=== PATIENT | female | born 1985 | race Caucasian/White ===

== ENCOUNTER → 2024-08-10 10:27 | Outpatient (CLI) | payer OTHER, SELFPAY ==
--- NOTE | 2024-08-10 10:30 | DI.MG.S_ITS ---
UNILATERAL RIGHT DIGITAL DIAGNOSTIC MAMMOGRAM 3D/2D WITH ADDITIONAL VIEWS: 08/10/2024 CLINICAL: Additional evaluation requested from prior study. Comparison is made to exam dated: 04/24/2024 mammogram - [facility]. The breasts are heterogeneously dense, which may obscure small masses (category c / 51-75% glandular tissue). There are grouped coarse heterogeneous punctate calcifications in the right breast at 12 o'clock posterior depth. These are seen in additional views. No other significant masses or calcifications are seen in the breast. IMPRESSION: SUSPICIOUS The grouped coarse heterogeneous punctate calcifications in the right breast are at a low suspicion for malignancy. A stereotactic biopsy is recommended. Findings and recommendations were discussed with the patient during today's examination. Based on the Tyrer Cuzick model (a risk assessment model) the patient's lifetime risk is 13.9% and her 10 year risk is 1.9%. According to the ACR, ACS, and NCCN guidelines, an annual breast MRI exam along with mammogram is recommended if the patient's lifetime risk is 20% or greater. This exam was interpreted at Station ID: [id number]. NOTE: For mammograms, a report in lay terms will be sent to the patient. Approximately 15% of breast malignancies will not be visualized mammographically. In the management of a palpable breast mass, a negative mammogram must not discourage biopsy of a clinically suspicious lesion. Electronically Signed By: Ji Campbell M.D. aty/:08/10/2024 11:30:54 letter sent: Biopsy Required ACR BI-RADS Category 4A: Suspicious
== END ==
PROVIDERS: PCP Nurse Practitioner Family; Referring Provider Nurse Practitioner Family; Visit Provider Nurse Practitioner Family
DX: R92.1 Mammographic calcification found on diagnostic imaging of breast (principal); R92.333 Mammographic heterogeneous density, bilateral breasts
CPT/HCPCS: 77065; G0279

== ENCOUNTER → 2024-09-14 11:40 | Outpatient (CLI) | payer OTHER, SELFPAY ==
--- NOTE | 2024-09-14 | DI.MRI.S_ITS ---
PROCEDURE: MR LUMBAR SPINE WO CON INDICATIONS: Low back pain, unspecified TECHNIQUE: Noncontrast sagittal T1 spin echo and T2 fast echo, sagittal STIR, and T2 fast spin echo through the lumbar spine. In cases with scoliosis, additional coronal T2 fast spin echo may be performed. COMPARISON: None. FINDINGS: Image quality: Adequate. Some motion artifact on axial imaging sequences. Alignment and Curvature: There is normal alignment except for grade 1 anterolisthesis of L5 on S1 by approximately 4 millimeters. Bone Marrow: Marrow signal is normal except for the L3 vertebral body where there is geographic T1 hypointensity and T2 hyperintensity within the right jose maria body superior endplate extending back into the right pedicle. Differential diagnosis includes superior endplate fracture at L3 however no clear discernible fracture line is noted. Spinal Cord: Conus medullaris terminates at the L1 level. Visualized cord demonstrates normal signal and size. Paraspinous Soft Tissues: No paravertebral masses. T12-L1: Normal appearance. L1-L2: Normal appearance. L2-L3: Normal appearance. L3-L4: Normal appearance. L4-L5: Mild bilateral facet degenerative changes with some ligamentum flavum hypertrophy without significant central spinal or neural foraminal stenosis. L5-S1: Bilateral moderate facet degenerative change. Anterolisthesis of L5 on S1 grade 1. Mild bilateral neural foraminal stenosis. No significant central spinal stenosis. IMPRESSION: 1. Geographic area of T1 hypointensity and T2 hyperintensity within the right jose maria body of L3 superiorly extending back to the right pedicle. Differential diagnosis includes superior endplate fracture at L3 however no obvious cortical fracture line is noted and there is no evidence of any vertebral body compression. Correlate with history of trauma and targeted physical exam findings. If no history of trauma in this location repeat lumbar spine MRI with intravenous contrast may be of benefit to evaluate for underlying lesion such as neoplasm or atypical hemangioma. 2. Grade 1 anterolisthesis of L5 on S1 with bilateral facet degenerative changes at this level as above. Dictated by: Adria Crawford M.D. on 09/14/2024 at 12:52 Approved by: Adria Crawford M.D. on 09/14/2024 at 13:10
== END ==
PROVIDERS: PCP Nurse Practitioner Family; Referring Provider Nurse Practitioner Family; Visit Provider Nurse Practitioner Family
DX: M54.10 Radiculopathy, site unspecified (principal); M43.17 Spondylolisthesis, lumbosacral region; M47.816 Spondylosis without myelopathy or radiculopathy, lumbar region; M47.817 Spondylosis without myelopathy or radiculopathy, lumbosacral region; M54.50 Low back pain, unspecified
CPT/HCPCS: 72148

== ENCOUNTER 2024-09-16 18:44 | Emergency (ER) | payer OTHER, SELFPAY ==
[2024-09-16] VITALS (8 sets, daily range): BP systolic 99–122; BP diastolic 56–77; PULSE 86–100; RESP 16–20; TEMP 36.8; O2SAT 98–100; BMI 29.2
[2024-09-16 19:23] LABS: Add Manual Diff / Slide Review NO; Basophils Absolute Auto 100 /uL (0-100); Basophils Percent Auto 0.8 % (0-2); Eosinophils Absolute Auto 400 /uL (0-450); Eosinophils Percent Auto 3.1 % (2-4); Hematocrit 37.5 % (36-46); Hemoglobin 12.4 g/dL (12.0-16.0); Lymphocytes Absolute Auto 2800 /uL (1100-4500); Lymphocytes Percent Auto 20.3 % (25-40); Mean Corpuscular Hemoglobin 28.5 PG (26-34); Mean Corpuscular Volume 86.4 fL (80-100); Monocytes Absolute Auto 1000 /uL (0-900); Monocytes Percent Auto 7.5 % (3-14); Neutrophils Absolute Auto 9600 /uL (1500-7000); Neutrophils Percent Auto 68.3 % (50-75); Platelet Count 345 X10^3/uL (150-400); Red Blood Cell Count 4.34 X10^6/uL (4.0-5.2); Red Cell Distribution Width 13.3 % (11.6-14.8)
[2024-09-16 19:27] LABS: Albumin 4.3 g/dL (3.5-5.0); Albumin Globulin Ratio 1.5 (1.0-2.8); Alkaline Phosphatase 56 U/L (38-126); BUN Creatinine Ratio 17.4 (6-22); Bilirubin Total 0.2 mg/dL (0.2-1.3); Blood Urea Nitrogen 12 mg/dL (7-17); Calcium 9.2 mg/dL (8.4-10.2); Carbon Dioxide 26 mmol/L (22-32); Chloride 102 mmol/L (98-107); Estimated Glomerular Filt Rate > 60 mL/min (>60); Globulin 2.8 g/dL (1.7-4.1); Glucose 117 mg/dL (70-100); HEMOLYSIS < 15 (0-50); Lipase 99 U/L (23-300); Potassium 4.2 mmol/L (3.4-5.1); Sodium 134 mmol/L (137-145); Total Protein 7.1 g/dL (6.3-8.2)
[2024-09-16 19:28] LABS: Alanine Aminotransferase 21 IU/L (<35); Aspartate Aminotransferase 28 IU/L (14-36)
--- NOTE | 2024-09-16 20:39 | ED.GENADULT ---
HPI - General Adult General Chief complaint: Abdominal Pain Stated complaint: chest and abd px Time Seen by Provider: 09/16/24 20:33 Source: patient Mode of arrival: Wheelchair History of Present Illness HPI narrative: Patient was a 39-year-old female here for evaluation of epigastric and middle abdominal discomfort that has been getting worse over the past day. Did have a bowel movement earlier today change in the abdominal pain. No vomiting. No fevers. No urinary symptoms. Has had C-sections but no other abdominal surgeries. Has not tried anything for her symptoms prior to arrival. Related Data Previous Rx's Medication Instructions Recorded ciprofloxacin HCl 500 mg tablet 500 mg PO BID 10 days #20 tabs 09/16/24 (Cipro) metronidazole 500 mg tablet 500 mg PO TID 10 days #30 tabs 09/16/24 Allergies Allergy/AdvReac Type Severity Reaction Status Date / Time codeine AdvReac nausea, Verified 09/16/24 18:56 itching Review of Systems Review of Systems ROS Unobtainable: All systems reviewed & are unremarkable except as noted in HPI and below Patient History Social History Smoking Status: Never smoker Smoking Status: Never smoker Exam Initial Vital Signs Initial Vital Signs: Vital Signs Temperature 98.3 F 09/16/24 18:56 Pulse Rate 100 H 09/16/24 18:56 Respiratory Rate 18 09/16/24 18:56 Blood Pressure 110/66 09/16/24 18:56 Pulse Oximetry 98 09/16/24 18:56 Oxygen Delivery Method Room Air 09/16/24 18:56 Const General: cooperative, comfortable and No ill appearing [facility] Head: normal to inspection and normocephalic Resp Auscultation: clear to auscultation bilaterally Cardio Rate: regular rate Rhythm: regular rhythm GI Inspection: normal to inspection and non-distended Palpation: soft, No firm, No guarding and tender Skin General: no rashes or lesions noted Neuro General: patient alert, patient awake and moves all extremities Extrem General: capillary refill normal Course Orders Ordered: ED Orders 09/16/24 19:06 Complete Blood Count AUTO DIFF Stat Comprehensive Metabolic Panel Stat Lipase Stat Test Serum,Qual Stat 09/16/24 21:06 CT abdomen pelvis w con Stat 09/16/24 21:17 Urine Microscopic Stat Discontinued Medications Ciprofloxacin (Ciprofloxacin 250 Mg Tablet) 500 mg PO NOW ONE Stop: 09/16/24 21:37 Last Admin: 09/16/24 21:41 Dose: 500 mg Documented By: KEITH Ketorolac Tromethamine (Ketorolac 30 Mg/Ml Vial) 15 mg IV NOW ONE Stop: 09/16/24 20:40 Last Admin: 09/16/24 20:49 Dose: 15 mg Documented By: KEITH Metronidazole (Metronidazole 500 Mg Tablet) 500 mg PO NOW ONE Stop: 09/16/24 21:37 Last Admin: 09/16/24 21:41 Dose: 500 mg Documented By: KEITH Ondansetron HCl (Ondansetron 4 Mg/2 Ml Inj) 4 mg IV NOW PRN PRN Reason: Nausea And Vomiting Ondansetron HCl (Ondansetron 4 Mg Odt) 4 mg PO NOW PRN PRN Reason: Nausea And Vomiting Vital Signs Vital signs: Vital Signs - 8 hr 09/16/24 18:56 09/16/24 20:09 09/16/24 20:10 Temperature 98.3 F Pulse Rate 100 H 90 Respiratory Rate 18 Blood Pressure 110/66 122/77 Pulse Oximetry 98 100 Oxygen Delivery Method Room Air 09/16/24 20:10 09/16/24 20:30 09/16/24 20:30 Temperature Pulse Rate 86 87 Respiratory Rate 20 Blood Pressure 109/65 Pulse Oximetry 100 99 Oxygen Delivery Method Room Air 09/16/24 21:00 09/16/24 21:17 09/16/24 21:17 Temperature Pulse Rate 86 88 Respiratory Rate 20 Blood Pressure 99/56 L Pulse Oximetry 100 100 Oxygen Delivery Method Room Air 09/16/24 21:30 09/16/24 21:43 09/16/24 21:43 Temperature Pulse Rate 89 100 H Respiratory Rate 16 Blood Pressure 109/65 Pulse Oximetry 99 98 Oxygen Delivery Method Room Air Medical Decision Making Lab Data Lab results reviewed: Yes I reviewed the patient's lab results. 09/16/24 19:06 09/16/24 19:06 Labs: Lab Results 09/16/24 09/16/24 Range/Units 19:06 21:17 WBC 14.0 H (4.5-11.0) X10^3/uL RBC 4.34 (4.0-5.2) X10^6/uL Hgb 12.4 (12.0-16.0) g/dL Hct 37.5 (36-46) % MCV 86.4 (80-100) fL MCH 28.5 (26-34) PG MCHC 33.0 (30-36) % RDW 13.3 (11.6-14.8) % Plt Count 345 (150-400) X10^3/uL Neut % (Auto) 68.3 (50-75) % Lymph % (Auto) 20.3 L (25-40) % [place] % (Auto) 7.5 (3-14) % Eos % (Auto) 3.1 (2-4) % Baso % (Auto) 0.8 (0-2) % Neut # (Auto) 9600 H (1034-1674) /uL Lymph # (Auto) 2800 (9150-4674) /uL [place] # (Auto) 1000 H (0-900) /uL Eos # (Auto) 400 (0-450) /uL Baso # (Auto) 100 (0-100) /uL Sodium 134 L (137-145) mmol/L Potassium 4.2 (3.4-5.1) mmol/L Chloride 102 (98-107) mmol/L Carbon Dioxide 26 (22-32) mmol/L BUN 12 (7-17) mg/dL Creatinine 0.69 (0.52-1.04) mg/dL Estimated GFR > 60 (>60) mL/min BUN/Creatinine Ratio 17.4 (6-22) Glucose 117 H (70-100) mg/dL Calcium 9.2 (8.4-10.2) mg/dL Total Bilirubin 0.2 (0.2-1.3) mg/dL AST 28 (14-36) IU/L ALT 21 (<35) IU/L Alkaline Phosphatase 56 (38-126) U/L Total Protein 7.1 (6.3-8.2) g/dL Albumin 4.3 (3.5-5.0) g/dL Globulin 2.8 (1.7-4.1) g/dL Albumin/Globulin Ratio 1.5 (1.0-2.8) Lipase 99 (23-300) U/L Serum , Qual Negative (Negative) Urine RBC 0-1/hpf (0-5/HPF) Urine WBC None seen (0-5/HPF) Ur Squamous Epith Cells 0-1 /hpf (0-5/HPF) Urine Bacteria None seen (None) Ur Culture Indicated? Cult not indicated Vol Urine Centrifuged 10ml (spun) Urine Dip Bedside Urine Glucose Negative Bedside Urine Bilirubin - Negative Bedside Urine Ketone - Negative Urine Specific [place] 1.025 Bedside Urine Occult Blood + Bedside Urine pH 6.0 Bedside Urine Protein - Negative Bedside Urine Urobilinogen - Negative Bedside Urine Nitrite - Negative Bedside Urine Leukocytes - Negative Esterase Point of care testing: Urine Dip Bedside Urine Glucose Negative Bedside Urine Bilirubin - Negative Bedside Urine Ketone - Negative Urine Specific [place] 1.025 Bedside Urine Occult Blood + Bedside Urine pH 6.0 Bedside Urine Protein - Negative Bedside Urine Urobilinogen - Negative Bedside Urine Nitrite - Negative Bedside Urine Leukocytes - Negative Esterase Imaging Data CT scan - abdomen/pelvis: Radiologist's Impression: PROCEDURE: CT ABDOMEN PELVIS W CON INDICATIONS: Periumbilical abdominal pain TECHNIQUE: After the administration of intravenous contrast, axial sections acquired from the lung bases to the pubic symphysis. Coronal and sagittal reformats were performed. For radiation dose reduction, the following was used: automated exposure control, adjustment of mA and/or kV according to patient size. COMPARISON: [facility], MR, MR LUMBAR SPINE WO CON, 09/14/2024, 12:08. FINDINGS: Image quality: Diagnostic. Lower Chest: No significant findings. ABDOMEN: Liver: No solid mass. Gallbladder: No radiopaque gallstones or wall thickening. Biliary ducts: No biliary dilation. Pancreas: No ductal dilation. Spleen: Size is within normal limits. Adrenal Glands: No adrenal nodules. Kidneys and Ureters: No hydronephrosis. No solid mass. No complex renal cystic lesion which requires follow up. Stomach and Bowel: Multiple diverticula are seen in the colon. There is focal fat stranding surrounding a diverticulum at the mid transverse colon in the upper abdomen. Moderate stool is seen throughout the colon. Normal appendix. Small bowel loops and stomach are unremarkable. Peritoneum: No abnormal intraperitoneal fluid. No free air. Ventral Wall: No significant ventral hernia. Abdominal Nodes: No retroperitoneal or mesenteric adenopathy by size criteria. Vessels: Aorta and inferior vena cava are normal in size. PELVIS: Pelvic Organs: Unremarkable. Bladder: No bladder wall thickening, accounting for underdistention. Pelvic Nodes: No enlarged lymph nodes. Miscellaneous: No inguinal hernias are seen. Cortically is seen in the right posterior superior endplate of the L3 vertebral body adjacent to the pedicle corresponding the area of edema on MRI from 09/14/2024. IMPRESSION: 1. Acute uncomplicated diverticulitis at the mid transverse colon in the anterior upper abdomen. 2. Endplate irregularity at the right posterior superior L3 vertebral body in the area of edema is seen on MRI from 09/14/2024, suspicious for a minimally depressed fracture. MDM Narrative Medical decision making narrative: CT scan shows uncomplicated diverticulitis without signs of perforation or abscess. Her symptoms are somewhat better after medications here in the ER. She was tolerating oral intake. Given 1st dose of antibiotics here in the ER. No indication for admission to hospital based on her labs and exam and CT scan today. A prescription for the remainder of the course was sent to the pharmacy of her choice. She was given return precautions and follow-up instructions. She expressed understanding and agreement with the plan. Discharge Plan Departure Patient Disposition: Home Clinical Impression: Diverticulitis Instructions: DI for Diverticulitis Activity Restrictions/Additional Instructions: Take the antibiotics as directed. I do recommend a bland diet for the next couple days. Be sure that you were increasing your fluid intake. Contact your primary doctor for a follow-up. Return to the emergency department for new symptoms. Prescriptions: New ciprofloxacin HCl [Cipro] 500 mg tablet 500 mg PO BID 10 Days Qty: 20 0RF metronidazole 500 mg tablet 500 mg PO TID 10 Days Qty: 30 0RF Referrals: Andie Gomes FNP-C [Primary Care Provider] - Stand Alone Forms: Patient Portal/API/Survey
[2024-09-16] MEDS: KETOROLAC 30 MG/ML VIAL 15 MG IV (20:49)
--- NOTE | 2024-09-16 20:55 | PC.NURSE ---
Pt to imaging via stretcher with tech
[2024-09-16 20:57] LABS: Pregnancy Test Serum,Qual Negative (Negative)
--- NOTE | 2024-09-16 21:06 | DI.CT.S_ITS ---
PROCEDURE: CT ABDOMEN PELVIS W CON INDICATIONS: Periumbilical abdominal pain TECHNIQUE: After the administration of intravenous contrast, axial sections acquired from the lung bases to the pubic symphysis. Coronal and sagittal reformats were performed. For radiation dose reduction, the following was used: automated exposure control, adjustment of mA and/or kV according to patient size. COMPARISON: [facility], MR, MR LUMBAR SPINE WO CON, 09/14/2024, 12:08. FINDINGS: Image quality: Diagnostic. Lower Chest: No significant findings. ABDOMEN: Liver: No solid mass. Gallbladder: No radiopaque gallstones or wall thickening. Biliary ducts: No biliary dilation. Pancreas: No ductal dilation. Spleen: Size is within normal limits. Adrenal Glands: No adrenal nodules. Kidneys and Ureters: No hydronephrosis. No solid mass. No complex renal cystic lesion which requires follow up. Stomach and Bowel: Multiple diverticula are seen in the colon. There is focal fat stranding surrounding a diverticulum at the mid transverse colon in the upper abdomen. Moderate stool is seen throughout the colon. Normal appendix. Small bowel loops and stomach are unremarkable. Peritoneum: No abnormal intraperitoneal fluid. No free air. Ventral Wall: No significant ventral hernia. Abdominal Nodes: No retroperitoneal or mesenteric adenopathy by size criteria. Vessels: Aorta and inferior vena cava are normal in size. PELVIS: Pelvic Organs: Unremarkable. Bladder: No bladder wall thickening, accounting for underdistention. Pelvic Nodes: No enlarged lymph nodes. Miscellaneous: No inguinal hernias are seen. Cortically is seen in the right posterior superior endplate of the L3 vertebral body adjacent to the pedicle corresponding the area of edema on MRI from 09/14/2024. IMPRESSION: 1. Acute uncomplicated diverticulitis at the mid transverse colon in the anterior upper abdomen. 2. Endplate irregularity at the right posterior superior L3 vertebral body in the area of edema is seen on MRI from 09/14/2024, suspicious for a minimally depressed fracture. Approved by: Martín Farias M.D. on 09/16/2024 at 21:15
--- NOTE | 2024-09-16 21:20 | PC.NURSE ---
Pt ambulatory to restroom without difficulty or assistance. Pt states pain unchanged from lying, sitting or standing but has intermittent moment where pain is up to a 10/10.
[2024-09-16 21:38] LABS: Bacteria Urine None Seen; Culture Indicated Urine Cult Not Indicated; RBC Urine 0-1/HPF (0-5/HPF); Squamous Epithelial Cell Urine 0-1 /HPF (0-5/HPF); Urine Volume 10mL (spun); WBC Urine None Seen (0-5/HPF)
[2024-09-16] MEDS: CIPROFLOXACIN 250 MG TABLET 500 MG PO (21:41)
[2024-09-16] MEDS: metroNIDAZOLE 500 MG TABLET PO (21:41)
== END 2024-09-16 21:49 | disposition home or self-care (01) ==
PROVIDERS: Emergency Provider Emergency Medicine; PCP Nurse Practitioner Family
DX: K57.32 Diverticulitis of large intestine without perforation or abscess without bleeding (principal)
CPT/HCPCS: 74177; 80053; 81003; 81015; 83690; 84703; 85025; 96374; 99284; J1885; Q9967

== ENCOUNTER 2024-09-19 13:59 | Emergency (ER) | payer OTHER, SELFPAY ==
[2024-09-19 14:20] VITALS: BP 108/58; PULSE 83; RESP 16; TEMP 36.6; O2SAT 100; BMI 30.2
--- NOTE | 2024-09-19 15:55 | ED_ITS ---
HPI - Abdominal Pain <Dayna De Souza PA-C - Last Filed: 09/19/24 18:57> General Chief Complaint: Abdominal Pain Stated Complaint: per pt deverticulitis Time Seen by Provider: 09/19/24 15:55 Source: patient Mode of arrival: Family Vehicle History of Present Illness HPI narrative: Ms. Oscar Luo is a pleasant 39-year-old female with a past medical history of chronic back pain and diverticulitis diagnosed on 09/16/2024 who presents to the emergency department for worsening abdominal pain. On 09/16/2024 the patient was seen in the ER for epigastric abdominal pain and was found to have acute uncomplicated diverticulitis of the mid transverse colon in the anterior upper abdomen on CT scan. Patient was discharge with prescriptions for ciprofloxacin and metronidazole. Patient has been taking her antibiotics as prescribed however she reports worsening abdominal pain in the left lower quadrant of her abdomen. Describes pain as sharp. States that when she takes a deep breath she has pain in the epigastric region of her abdomen which is the same as 3 days ago. She reports not having a bowel movement over the weekend but in the ER waiting room she did have 1 loose bowel movement that was nonbloody. She denies nausea or vomiting. Denies fevers but admits to chills. Denies dysuria, hematuria. States that she has been drinking a lot of water but has not been eating much. She has not taken any pain medications. She last took antibiotics this morning. Surgical history includes . Patient was initially taken by EMS to [facility] ER as we are on diversion due to CT scanner being down however patient has signed out AMA and has her drive her to [facility] ER. Related Data Previous Rx's Medication Instructions Recorded ciprofloxacin HCl 500 mg tablet 500 mg PO BID 10 days #20 tabs 09/16/24 (Cipro) metronidazole 500 mg tablet 500 mg PO TID 10 days #30 tabs 09/16/24 amoxicillin 875 mg-potassium 1 tab PO Q12H #20 tabs 09/19/24 clavulanate 125 mg tablet hydrocodone 5 mg-acetaminophen 325 1 tab PO TID PRN pain #10 tabs 09/19/24 mg tablet Allergies Allergy/AdvReac Type Severity Reaction Status Date / Time codeine AdvReac nausea, Verified 09/19/24 14:24 itching Review of Systems <Dayna De Souza PA-C - Last Filed: 09/19/24 18:57> Review of Systems ROS Unobtainable: All systems reviewed & are unremarkable except as noted in HPI and below Patient History <Dayna De Souza PA-C - Last Filed: 09/19/24 18:57> Social History Smoking Status: Never smoker Smoking Status: Never smoker Exam <Dayna De Souza PA-C - Last Filed: 09/19/24 18:57> Narrative Exam Narrative: GENERAL: 39 year old patient appears stated age. Well-developed patient, in no acute distress. HEAD: Atraumatic. Normocephalic. EYES: Extraocular motions intact. No scleral icterus. No injection or drainage. ENT: Nose without bleeding, purulent drainage. NECK: Trachea midline. Cervical ROM intact. CARDIOVASCULAR: Regular rate and rhythm. RESPIRATORY: ?Nonlabored respirations. ?Speaking in clear, full sentences. ?Clear to auscultation. Breath sounds equal bilaterally. No wheezes, rales, or rhonchi. ? GASTROINTESTINAL: Abdomen soft, nondistended, normal bowel sounds. She does have subjective tenderness in the left lower quadrant and epigastric region of the abdomen with no rebound or guarding. EXTREMITIES: No edema or joint tenderness. NEURO: AOx3. ?Clear speech. ?Moves all 4 extremities appropriately. SKIN: No rash or erythema of visible areas Initial Vital Signs Initial Vital Signs: Vital Signs Temperature 97.8 F 09/19/24 14:20 Pulse Rate 83 09/19/24 14:20 Respiratory Rate 16 09/19/24 14:20 Blood Pressure 108/58 L 09/19/24 14:20 Pulse Oximetry 100 09/19/24 14:20 Oxygen Delivery Method Room Air 09/19/24 14:20 <Kym Plunkett MD - Last Filed: 09/19/24 23:56> Initial Vital Signs Initial Vital Signs: Vital Signs Temperature 97.8 F 09/19/24 14:20 Pulse Rate 83 09/19/24 14:20 Respiratory Rate 16 09/19/24 14:20 Blood Pressure 108/58 L 09/19/24 14:20 Pulse Oximetry 100 09/19/24 14:20 Oxygen Delivery Method Room Air 09/19/24 14:20 Course <Dayna De Souza PA-C - Last Filed: 09/19/24 18:57> Orders Ordered: ED Orders 09/19/24 16:05 XR chest 1V Stat 09/19/24 16:10 Complete Blood Count AUTO DIFF Stat Comprehensive Metabolic Panel Stat Lactate (Lactic Acid) Stat Lipase Stat Discontinued Medications Hydrocodone Bitart/Acetaminophen (Hydrocodone/Acet 5/325 Prepack) 1 bottle MISC DIRECTED ONE Stop: 09/19/24 21:55 Last Admin: 09/19/24 22:10 Dose: 1 bottle Documented By: CAITLIN Sodium Chloride (Normal Saline 0.9%) 1,000 mls @ 1,000 mls/hr IV BOLUS ONE Stop: 09/19/24 17:04 Last Infusion: 09/19/24 18:18 Dose: Infused Documented By: Admin: 09/19/24 16:27 Dose: 1,000 mls/hr Documented By: TIFFANIE Ketorolac Tromethamine (Ketorolac 30 Mg/Ml Vial) 15 mg IV NOW ONE Stop: 09/19/24 16:06 Last Admin: 09/19/24 16:27 Dose: 15 mg Documented By: TIFFANIE Lactulose (Lactulose 20 Gm/30 Ml Solution) 20 gm PO NOW ONE Stop: 09/19/24 21:56 Last Admin: 09/19/24 22:08 Dose: 20 gm Documented By: CAITLIN Morphine Sulfate (Morphine 4 Mg/Ml Inj) 4 mg IV NOW ONE Stop: 09/19/24 16:06 Last Admin: 09/19/24 16:27 Dose: 4 mg Documented By: TIFFANIE Ondansetron HCl (Ondansetron 4 Mg/2 Ml Inj) 4 mg IV NOW PRN PRN Reason: Nausea And Vomiting Ondansetron HCl (Ondansetron 4 Mg Odt) 4 mg PO NOW PRN PRN Reason: Nausea And Vomiting Ondansetron HCl (Ondansetron 4 Mg/2 Ml Inj) 4 mg IV NOW ONE Stop: 09/19/24 16:06 Last Admin: 09/19/24 16:27 Dose: 4 mg Documented By: TIFFANIE Vital Signs Vital signs: Vital Signs - 8 hr 09/19/24 18:27 09/19/24 21:08 09/19/24 21:08 Pulse Rate 68 69 Respiratory Rate 18 Blood Pressure 110/57 L 115/56 L Pulse Oximetry 98 92 09/19/24 21:30 09/19/24 21:33 09/19/24 21:33 Pulse Rate 75 73 Respiratory Rate 18 Blood Pressure 105/64 Pulse Oximetry 98 100 09/19/24 22:00 09/19/24 22:00 Pulse Rate 74 Respiratory Rate 18 Blood Pressure 110/78 Pulse Oximetry 99 <Kym Plunkett MD - Last Filed: 09/19/24 23:56> Orders Ordered: ED Orders 09/19/24 16:05 XR chest 1V Stat 09/19/24 16:10 Complete Blood Count AUTO DIFF Stat Comprehensive Metabolic Panel Stat Lactate (Lactic Acid) Stat Lipase Stat Discontinued Medications Hydrocodone Bitart/Acetaminophen (Hydrocodone/Acet 5/325 Prepack) 1 bottle MISC DIRECTED ONE Stop: 09/19/24 21:55 Last Admin: 09/19/24 22:10 Dose: 1 bottle Documented By: CAITLIN Sodium Chloride (Normal Saline 0.9%) 1,000 mls @ 1,000 mls/hr IV BOLUS ONE Stop: 09/19/24 17:04 Last Infusion: 09/19/24 18:18 Dose: Infused Documented By: Admin: 09/19/24 16:27 Dose: 1,000 mls/hr Documented By: TIFFANIE Ketorolac Tromethamine (Ketorolac 30 Mg/Ml Vial) 15 mg IV NOW ONE Stop: 09/19/24 16:06 Last Admin: 09/19/24 16:27 Dose: 15 mg Documented By: TIFFANIE Lactulose (Lactulose 20 Gm/30 Ml Solution) 20 gm PO NOW ONE Stop: 09/19/24 21:56 Last Admin: 09/19/24 22:08 Dose: 20 gm Documented By: CAITLIN Morphine Sulfate (Morphine 4 Mg/Ml Inj) 4 mg IV NOW ONE Stop: 09/19/24 16:06 Last Admin: 09/19/24 16:27 Dose: 4 mg Documented By: TIFFANIE Ondansetron HCl (Ondansetron 4 Mg/2 Ml Inj) 4 mg IV NOW PRN PRN Reason: Nausea And Vomiting Ondansetron HCl (Ondansetron 4 Mg Odt) 4 mg PO NOW PRN PRN Reason: Nausea And Vomiting Ondansetron HCl (Ondansetron 4 Mg/2 Ml Inj) 4 mg IV NOW ONE Stop: 12/17/24 16:06 Last Admin: 09/19/24 16:27 Dose: 4 mg Documented By: TIFFANIE Vital Signs Vital signs: Vital Signs - 8 hr 09/19/24 18:27 09/19/24 21:08 09/19/24 21:08 Pulse Rate 68 69 Respiratory Rate 18 Blood Pressure 110/57 L 115/56 L Pulse Oximetry 98 92 09/19/24 21:30 09/19/24 21:33 09/19/24 21:33 Pulse Rate 75 73 Respiratory Rate 18 Blood Pressure 105/64 Pulse Oximetry 98 100 09/19/24 22:00 09/19/24 22:00 Pulse Rate 74 Respiratory Rate 18 Blood Pressure 110/78 Pulse Oximetry 99 MDM - Abdominal Pain <Dayna De Souza PA-C - Last Filed: 09/19/24 18:57> Medical Records Attestation: I reviewed the patient's medical records. Lab Data 09/19/24 16:10 09/19/24 16:10 Labs: Lab Results 09/19/24 Range/Units 16:10 WBC 8.1 (4.5-11.0) X10^3/uL RBC 4.18 (4.0-5.2) X10^6/uL Hgb 12.1 (12.0-16.0) g/dL Hct 36.6 (36-46) % MCV 87.6 (80-100) fL MCH 29.1 (26-34) PG MCHC 33.2 (30-36) % RDW 13.1 (11.6-14.8) % Plt Count 339 (150-400) X10^3/uL Neut % (Auto) 61.8 (50-75) % Lymph % (Auto) 25.4 (25-40) % Waller % (Auto) 7.6 (3-14) % Eos % (Auto) 4.4 H (2-4) % Baso % (Auto) 0.8 (0-2) % Neut # (Auto) 5000 (4999-8719) /uL Lymph # (Auto) 2100 (3522-1811) /uL Waller # (Auto) 600 (0-900) /uL Eos # (Auto) 400 (0-450) /uL Baso # (Auto) 100 (0-100) /uL Sodium 137 (137-145) mmol/L Potassium 4.0 (3.4-5.1) mmol/L Chloride 105 (98-107) mmol/L Carbon Dioxide 28 (22-32) mmol/L BUN 11 (7-17) mg/dL Creatinine 0.67 (0.52-1.04) mg/dL Estimated GFR > 60 (>60) mL/min BUN/Creatinine Ratio 16.4 (6-22) Glucose 109 H (70-100) mg/dL Lactate 0.8 (0.7-2.1) mmol/L Calcium 9.0 (8.4-10.2) mg/dL Total Bilirubin 0.4 (0.2-1.3) mg/dL AST 39 H (14-36) IU/L ALT 18 (<35) IU/L Alkaline Phosphatase 58 (38-126) U/L Total Protein 7.2 (6.3-8.2) g/dL Albumin 4.1 (3.5-5.0) g/dL Globulin 3.1 (1.7-4.1) g/dL Albumin/Globulin Ratio 1.3 (1.0-2.8) Lipase 77 (23-300) U/L Point of care testing: Point of Care Testing Test Results Negative Urine Dip Bedside Urine Glucose Negative Bedside Urine Bilirubin - Negative Bedside Urine Ketone - Negative Urine Specific [place] 1.015 Bedside Urine Occult Blood - Negative Bedside Urine pH 7.5 Bedside Urine Protein - Negative Bedside Urine Urobilinogen - Negative Bedside Urine Nitrite - Negative Bedside Urine Leukocytes - Negative Esterase Imaging Data Chest x-ray: Radiologist's Impression: PROCEDURE: XR CHEST 1V INDICATIONS: abd pain; pain with deep breath TECHNIQUE: One view of the chest was acquired. COMPARISON: None. FINDINGS: Surgical changes and devices: None. Lungs and pleura: Lungs are clear. No pleural effusions or pneumothorax. Mediastinum: Mediastinal contours appear normal. Heart size is normal. Bones and chest wall: No suspicious bony lesions. Overlying soft tissues appear unremarkable. IMPRESSION: No acute pulmonary process. MDM Narrative Medical decision making narrative: 39-year-old female with a past medical history of chronic back pain and diverticulitis diagnosed on 09/16/2024 who presents to the emergency department for worsening abdominal pain. On exam patient is in no acute distress, nontoxic appearing. Vital signs within normal limits. Reviewed records from 09/16/2024 showing acute diverticulitis of the transverse colon, patient was treated with ciprofloxacin and metronidazole. Patient reports worsening pain and new development of sharp left lower quadrant pain since then. She has been taking her antibiotics as prescribed, last dose this AM. She does not have any fevers. No pain meds taken at home. Differential diagnosis includes but is not limited to uncomplicated diverticulitis, worsening diverticulitis, diverticular perforation, intra- abdominal abscess, UTI, constipation, etc. We will proceed with rechecking abdominal labs, UA, CT abdomen and pelvis to rule out abscess or perf. We will treat with fluids, Toradol, morphine, Zofran. We will keep patient NPO. Due to CT diversion, patient will need to go to [facility] for CT then return to [place] ER. Patient agreeable to plan. Patient's labs reassuring. WBC count decreased from 14 to 8.1, it is now normal. Normal electrolytes, potassium 4.0 chloride 105, sodium 137. AST 39, ALT 18, alk phos 58. Lipase normal 77. test and point of care urine negative. Lactate normal 0.8. Chest x-ray normal, no free air under the diaphragm. 1750 re-eval of pt: Abdominal pain improved significantly, discussed all lab results. Pt still pending transfer for CT. She is resting comfortably. Pt leaving for transport to CT at time of my shift end. ED Night physician to follow pt's CT AP result and determine pt disposition. Pt aware and agreeable to transfer of care. <Kym Plunkett MD - Last Filed: 09/19/24 23:56> Lab Data Labs: Lab Results 09/19/24 Range/Units 16:10 WBC 8.1 (4.5-11.0) X10^3/uL RBC 4.18 (4.0-5.2) X10^6/uL Hgb 12.1 (12.0-16.0) g/dL Hct 36.6 (36-46) % MCV 87.6 (80-100) fL MCH 29.1 (26-34) PG MCHC 33.2 (30-36) % RDW 13.1 (11.6-14.8) % Plt Count 339 (150-400) X10^3/uL Neut % (Auto) 61.8 (50-75) % Lymph % (Auto) 25.4 (25-40) % Waller % (Auto) 7.6 (3-14) % Eos % (Auto) 4.4 H (2-4) % Baso % (Auto) 0.8 (0-2) % Neut # (Auto) 5000 (8198-7020) /uL Lymph # (Auto) 2100 (6466-6005) /uL Waller # (Auto) 600 (0-900) /uL Eos # (Auto) 400 (0-450) /uL Baso # (Auto) 100 (0-100) /uL Sodium 137 (137-145) mmol/L Potassium 4.0 (3.4-5.1) mmol/L Chloride 105 (98-107) mmol/L Carbon Dioxide 28 (22-32) mmol/L BUN 11 (7-17) mg/dL Creatinine 0.67 (0.52-1.04) mg/dL Estimated GFR > 60 (>60) mL/min BUN/Creatinine Ratio 16.4 (6-22) Glucose 109 H (70-100) mg/dL Lactate 0.8 (0.7-2.1) mmol/L Calcium 9.0 (8.4-10.2) mg/dL Total Bilirubin 0.4 (0.2-1.3) mg/dL AST 39 H (14-36) IU/L ALT 18 (<35) IU/L Alkaline Phosphatase 58 (38-126) U/L Total Protein 7.2 (6.3-8.2) g/dL Albumin 4.1 (3.5-5.0) g/dL Globulin 3.1 (1.7-4.1) g/dL Albumin/Globulin Ratio 1.3 (1.0-2.8) Lipase 77 (23-300) U/L Point of care testing: Point of Care Testing Test Results Negative Urine Dip Bedside Urine Glucose Negative Bedside Urine Bilirubin - Negative Bedside Urine Ketone - Negative Urine Specific [place] 1.015 Bedside Urine Occult Blood - Negative Bedside Urine pH 7.5 Bedside Urine Protein - Negative Bedside Urine Urobilinogen - Negative Bedside Urine Nitrite - Negative Bedside Urine Leukocytes - Negative Esterase MDM Narrative Medical decision making narrative: 39-year-old female with a past medical history of chronic back pain and diverticulitis diagnosed on 09/16/2024 who presents to the emergency department for worsening abdominal pain. On exam patient is in no acute distress, nontoxic appearing. Vital signs within normal limits. Reviewed records from 09/16/2024 showing acute diverticulitis of the transverse colon, patient was treated with ciprofloxacin and metronidazole. Patient reports worsening pain and new development of sharp left lower quadrant pain since then. She has been taking her antibiotics as prescribed, last dose this AM. She does not have any fevers. No pain meds taken at home. Differential diagnosis includes but is not limited to uncomplicated diverticulitis, worsening diverticulitis, diverticular perforation, intra- abdominal abscess, UTI, constipation, etc. We will proceed with rechecking abdominal labs, UA, CT abdomen and pelvis to rule out abscess or perf. We will treat with fluids, Toradol, morphine, Zofran. We will keep patient NPO. Due to CT diversion, patient will need to go to [facility] for CT then return to [place] ER. Patient agreeable to plan. Patient's labs reassuring. WBC count decreased from 14 to 8.1, it is now normal. Normal electrolytes, potassium 4.0 chloride 105, sodium 137. AST 39, ALT 18, alk phos 58. Lipase normal 77. test and point of care urine negative. Lactate normal 0.8. Chest x-ray normal, no free air under the diaphragm. 1750 re-eval of pt: Abdominal pain improved significantly, discussed all lab results. Pt still pending transfer for CT. She is resting comfortably. Pt leaving for transport to CT at time of my shift end. ED Night physician to follow pt's CT AP result and determine pt disposition. Pt aware and agreeable to transfer of care. Dr. Plunkett -care of patient is signed out to me by physician video production assistant. Independent review of patient and chart performed by myself. Laboratory work shows improvement in white blood cell count. CT scan does not show significant change in appearance of diverticulitis. This may be partially due to patient's constipation, which she has had since her diagnosis of diverticulitis 3 days ago. Patient was counseled on the importance of stool softeners as constipation can make diverticulitis worse. If pain is unbearable then I can prescribe a short course of pain medications, however patient was advised that this medication can worsen her already existing constipation and she should be very diligent in taking stool softeners to help stimulate bowel movements. Since there has been no change with Cipro and Flagyl we will change to Augmentin. ED return precautions discussed at bedside. Patient expressed understanding of the plan and is in agreement at this time. All questions answered at the time of discharge. Discharge Plan Departure Patient Disposition: Home Clinical Impression: Diverticulitis Instructions: DI for Diverticulitis Activity Restrictions/Additional Instructions: Your CT scan does not show any significant change in the inflammation around your colon, however your blood work does show improvement in your white blood cell count. Stop taking the Cipro and Flagyl, change to Augmentin. It is extremely important that you prevent constipation. Take a stool softener. MiraLax is a nontoxic supplement that you may take. Goal is for 1 soft bowel movement daily. You may take as much MiraLax as needed to obtain these results. The pain medications prescribed can cause drowsiness, so do not take this medication with alcohol or before driving. This medication also worsens constipation, so make sure that you take the stool softeners as previously instructed. Prescriptions: New amoxicillin-pot clavulanate 875-125 mg tablet 1 tab PO Q12H Qty: 20 0RF hydrocodone-acetaminophen 5-325 mg tablet 1 tab PO TID PRN (Reason: pain) Qty: 10 0RF No Action ciprofloxacin HCl [Cipro] 500 mg tablet 500 mg PO BID 10 Days Qty: 20 0RF metronidazole 500 mg tablet 500 mg PO TID 10 Days Qty: 30 0RF Referrals: Andie Gomes FNP-C [Primary Care Provider] - Stand Alone Forms: Patient Portal/API/Survey
--- NOTE | 2024-09-19 16:05 | DI.RAD.S_ITS ---
PROCEDURE: XR CHEST 1V INDICATIONS: abd pain; pain with deep breath TECHNIQUE: One view of the chest was acquired. COMPARISON: None. FINDINGS: Surgical changes and devices: None. Lungs and pleura: Lungs are clear. No pleural effusions or pneumothorax. Mediastinum: Mediastinal contours appear normal. Heart size is normal. Bones and chest wall: No suspicious bony lesions. Overlying soft tissues appear unremarkable. IMPRESSION: No acute pulmonary process. Dictated by: Sania Valdez M.D. on 09/19/2024 at 16:51 Approved by: Sania Valdez M.D. on 09/19/2024 at 16:51
[2024-09-19 16:25] LABS: Basophils Absolute Auto 100 /uL (0-100); Eosinophils Absolute Auto 400 /uL (0-450); Hemoglobin 12.1 g/dL (12.0-16.0); Lymphocytes Absolute Auto 2100 /uL (1100-4500); Monocytes Absolute Auto 600 /uL (0-900)
[2024-09-19] MEDS: SODIUM CHLORIDE 0.9% 1,000 ML 1000 ML IV (16:27)
[2024-09-19] MEDS: ONDANSETRON 4 MG/2 ML INJ IV (16:27)
[2024-09-19] MEDS: MORPHINE 4 MG/ML INJ IV (16:27)
[2024-09-19] MEDS: KETOROLAC 30 MG/ML VIAL 15 MG IV (16:27)
[2024-09-19 16:28] LABS: Add Manual Diff / Slide Review NO; Basophils Percent Auto 0.8 % (0-2); Eosinophils Percent Auto 4.4 % (2-4); Hematocrit 36.6 % (36-46); Lymphocytes Percent Auto 25.4 % (25-40); Mean Corpuscular HGB Conc 33.2 % (30-36); Mean Corpuscular Hemoglobin 29.1 PG (26-34); Mean Corpuscular Volume 87.6 fL (80-100); Monocytes Percent Auto 7.6 % (3-14); Neutrophils Absolute Auto 5000 /uL (1500-7000); Neutrophils Percent Auto 61.8 % (50-75); Platelet Count 339 X10^3/uL (150-400); Red Blood Cell Count 4.18 X10^6/uL (4.0-5.2); Red Cell Distribution Width 13.1 % (11.6-14.8); White Blood Cell Count 8.1 X10^3/uL (4.5-11.0)
[2024-09-19 16:40] LABS: Alanine Aminotransferase 18 IU/L (<35); Albumin 4.1 g/dL (3.5-5.0); Albumin Globulin Ratio 1.3 (1.0-2.8); Alkaline Phosphatase 58 U/L (38-126); Aspartate Aminotransferase 39 IU/L (14-36); BUN Creatinine Ratio 16.4 (6-22); Bilirubin Total 0.4 mg/dL (0.2-1.3); Blood Urea Nitrogen 11 mg/dL (7-17); Carbon Dioxide 28 mmol/L (22-32); Chloride 105 mmol/L (98-107); Estimated Glomerular Filt Rate > 60 mL/min (>60); Globulin 3.1 g/dL (1.7-4.1); Glucose 109 mg/dL (70-100); HEMOLYSIS 17 (0-50); Lipase 77 U/L (23-300); Sodium 137 mmol/L (137-145); Total Protein 7.2 g/dL (6.3-8.2)
[2024-09-19 17:18] LABS: Lactate (Lactic Acid) 0.8 mmol/L (0.7-2.1)
[2024-09-19 18:27] VITALS: BP 110/57; PULSE 68; RESP 18; O2SAT 98
--- NOTE | 2024-09-19 18:58 | PC.NURSE ---
Pt left unit with [facility] ambulance at 1900. VSS.
[2024-09-19 21:08] VITALS: BP 115/56; PULSE 69; O2SAT 92
--- NOTE | 2024-09-19 21:16 | PC.NURSE ---
Assessment was deferred awaiting her return from [facility] for CT scan. Diverticulitis dx on wednesday, patient d/c'd with abx, this AM woke up and the pain was so bad it was difficult to breathe. Patient is currently reporting pain all across her lower abdomen that is cramping and sharp in quality.
[2024-09-19 21:30] VITALS: PULSE 75; O2SAT 98
[2024-09-19 21:33] VITALS: BP 105/64; PULSE 73; RESP 18; O2SAT 100
[2024-09-19 22:00] VITALS: BP 110/78; PULSE 74; RESP 18; O2SAT 99
[2024-09-19] MEDS: LACTULOSE 20 GM/30 ML SOLUTION PO (22:08)
[2024-09-19] MEDS: HYDROCODONE/ACET 5/325 PREPACK 1 BOTTLE MISC (22:10)
== END 2024-09-19 22:17 | disposition home or self-care (01) ==
PROVIDERS: Emergency Medicine; Emergency Provider Physician Assistant; PCP Nurse Practitioner Family
DX: K57.92 Diverticulitis of intestine, part unspecified, without perforation or abscess without bleeding (principal)
CPT/HCPCS: 36415; 71045; 80053; 81003; 81025; 83605; 83690; 85025; 96361; 96374; 96375; 99284; J1885; J2270; J2405